=== PATIENT | female | born 2000 | race Caucasian/White ===

== ENCOUNTER 2023-08-05 08:14 | Outpatient (REF) | payer OTHER, SELFPAY ==
[2023-08-05 08:30] LABS: MANUAL DIFF FLAG NO
[2023-08-05 08:48] LABS: Basophils Percent Auto 0.7 % (0-2); Eosinophils Absolute Auto 0.1 X10*3/uL (0.0-0.4); Eosinophils Percent Auto 1.9 % (0-4); Hematocrit 41.4 % (37.0-47.0); Imm Gran Abs Auto 0.02 X10*3/uL (0.00-0.03); Imm Gran Pct Auto 0.3 % (0.0-0.4); Lymphocytes Absolute Auto 1.7 X10*3/uL (1.2-4.9); Lymphocytes Percent Auto 29.2 % (20-40); Mean Corpuscular HGB Conc 33.8 g/dl (31.0-35.0); Mean Corpuscular Hemoglobin 30.7 pg (27.0-33.0); Mean Corpuscular Volume 90.8 fL (80.0-98.0); Mean Platelet Volume 9.3 fL (9.4-12.3); Monocytes Absolute Auto 0.5 X10*3/uL (0.1-1.2); Monocytes Percent Auto 8.5 % (2-11); Neutrophils Absolute Auto 3.4 x10*3/uL (2.0-8.3); Neutrophils Percent Auto 59.4 % (45-73); Platelet Count 247 X10*3/uL (160-400); Red Blood Count 4.56 X10*6/uL (4.20-5.50); Red Cell Distribution Width 11.6 % (11.0-16.0); White Blood Count 5.8 X10*3/uL (4.8-10.8)
[2023-08-05 09:32] LABS: Estimated Average Glucose 82 mg/dL; Hemoglobin A1c % 4.5 % (<6.0)
[2023-08-05 09:39] LABS: Alanine Aminotransferase 14 U/L (0-31); Alkaline Phosphatase 62 U/L (39-117); Anion Gap 9 (12-20); Aspartate Amino Transferase 15 U/L (5-31); Bilirubin Total 0.3 mg/dL (0.0-1.0); Blood Urea Nitrogen 8 mg/dL (9-16); Calcium 9.1 mg/dL (8.4-10.2); Carbon Dioxide 28 mmol/L (22-29); Chloride 107 mmol/L (96-108); Estimated Glomerular Filt Rate > 60; Glucose Fasting 94 mg/dL (60-99); Sodium 140 mmol/L (135-145); Total Protein 6.9 g/dL (6.5-8.0)
[2023-08-05 09:57] LABS: Free T4 (Free Thyroxine) 0.92 ng/dL (0.71-1.85); Thyroid Stimulating Hormone 0.79 uIU/mL (0.32-4.0)
== END 2023-08-05 08:15 | disposition home or self-care (01) ==
LOC: HO.LAB 08:14
PROVIDERS: Visit Provider Psychiatry & Neurology Psychiatry
DX: F33.2 Major depressive disorder, recurrent severe without psychotic features (principal)
CPT/HCPCS: 36415; 80053; 83036; 84439; 84443; 85025

== ENCOUNTER → 2023-08-06 10:30 | Outpatient (BNV) | payer OTHER, SELFPAY | PROVIDERS: Visit Provider Psychiatry & Neurology Psychiatry | DX: F60.3 Borderline personality disorder (principal); F33.2 Major depressive disorder, recurrent severe without psychotic features; F43.12 Post-traumatic stress disorder, chronic; F17.290 Nicotine dependence, other tobacco product, uncomplicated | CPT/HCPCS: 90832; 90837; 99213 ==

== ENCOUNTER 2023-08-13 10:45 | Outpatient (RCR) | payer OTHER, SELFPAY ==
[2023-08-02 14:04] VITALS: BMI 24.6
--- NOTE | 2023-08-02 15:16 | PC.ADMIT ---
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 She reports d/t her mental health she has cut down her course load from 5 to three classes and is now taking classes online instead of in person. She self referred to [facility] d/t struggling with depression and severe anxiety with panic attacks along with feelings of intense anger and rage when she gets into arguments with her boyfriend. Having difficulty regulating her emotions. She reported on intake struggling with passive SI, no thoughts or plan to kill herself. Patient has a history of attending [facility] for three days however was sick with Covid and was subsequently discharged as a result of being unable to attend. Patient reports history of heavy alcohol intake while at college and at one point stated she was blacking out on some occasions when she would drink up to 10 drinks. She has since cut down her use and currently drinks one small bottle of wine and 2 Mixed drinksabout two nights a week. She stated she is done going out for a while. Denied using any other substances. Denied any alcohol withdrawal sxs. No tremors, no diaphoresis, no nausea or vomitting. VS 115/85 P 79. Patient is alert and oriented x4. Calm and cooperative. She presented with depressed mood and anxious affect. Denied any SI at present. I gave her a copy of her safety plan if needed. She is aware she an contact crisis if needed and stated prior to going to [facility] she spoke to crisis. Medications reconciled with patient and patient's pharmacy. Some medications changes when patient met with Dr Ferreira per patient including d/c hydroxyzine and decrease Abilify to 2 mg daily.
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
--- NOTE | 2023-08-05 16:28 | HO.PHP ---
Client case has been opened and reviewed in team.
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
--- NOTE | 2023-08-13 23:42 | P.PNPSP_ITS ---
Subjective Subjective Date of Service: 08/13/23 Reason For Visit: MDD,anxiety Interim History: Patient seen for follow-up, anticipating discharge at the end of program today.? Next, I found an [place] for support for when my dad is having problems She reports her mood is good, really good . She denies depressive symptoms, irritability or lability. I feel more steady . She found group therapy to be very helpful. She is open to DBT. She is still waiting to here back for a med provider appointment. She will try calling them today to check in. Reports no acute issues or concerns. Medication compliant, medications well- tolerated. Denies any adverse effects.? She is doing well on ABilify at 2 mg and WB SR 100 mg daily. She feels more focused and calmer. She has not been needing to take the quetiapine for agitation, but is happy to have it available to take in case she has any arguments or acute outbursts, but feels things are going well and feels more in control. Mood is stable.? Denies any hopelessness or SI. Denies thoughts of harming self or others at this time. Denies any aggressive ideation or HI. Denies any paranoia or AH or VH. Sleep, appetite, energy stable. Mental Status Exam Mental Status Exam Narrative: Alert, oriented, in no acute distress. Calm, cooperative. Mood stable, affect appropriate. Speech normal. Thought process linear, coherent, more goal- directed. Thought content related to stressors, future-oriented, denies any helplessness, hopelessness or SI.? No aggressive ideation or HI. No paranoia or delusional content elicited. No evidence of psychosis. Insight and judgment fair-good. Diagnostics Vital Signs (24Hr): BMI result Body Mass Index 24.6 Assessment & Plan Assessment & Plan (1) MDD (major depressive disorder), recurrent severe, without psychosis: Status: Acute Code(s): F33.2 - Major depressive disorder, recurrent severe without psychotic features Assessment and Plan: hx suggestive of DMDD as an adolescent r/o Bipolar disorder, unspecified (2) Complex posttraumatic stress disorder: Status: Acute Code(s): F43.10 - Post-traumatic stress disorder, unspecified (3) Emotionally unstable borderline personality disorder: Status: Acute Code(s): F60.3 - Borderline personality disorder Assessment and Plan: unstable personality development (4) Nicotine dependence due to vaping tobacco product: Status: Acute Code(s): F17.290 - Nicotine dependence, other tobacco product, uncomplicated Plan Discharge from [facility] continue current medication regime will defer further medication management to outpatient provider in the interim, patient encouraged to contact [facility] for refills if she does not get a provider until beyond current scripts Reviewed safety plan Refills sent to pharmacy Patient educated on: diagnosis, medication risk/benefits and substance abuse Informed Consent: understands Reason for contiued partial hosp. stay Substantial Risk for: stable for discharge Certification I certify that partial hospital treatment is medically necessary due to the symptoms and problems resulting from the patient's mental illness and the failure to treat the patient at the partial hospital level of care would likely result in the patient requiring inpatient psychiatric care which could not be prevented at a less intensive level of care. Total time managing care of this patient today __30__ minutes. Discharge Plan Discharge Attending provider: Kenisha Ferreira Medications: New quetiapine 25 mg tablet 12.5 - 25 mg PO BID PRN (Reason: agitation) Qty: 20 0RF nicotine (polacrilex) [Nicorette] 2 mg gum 2 mg buccal Q2H Qty: 50 0RF bupropion HCl 100 mg tablet sustained-release 12 hr 100 mg PO QAM Qty: 20 0RF Continued clonidine HCl 0.1 mg tablet 0.1 mg PO BEDTIME spironolactone 50 mg tablet 50 mg PO BID aripiprazole 2 mg tablet 2 mg PO BEDTIME 30 Days Qty: 30 0RF Stand Alone Forms: Patient Portal Discharge page Patient Education: Depression (DC) Print Language: Irish
== END 2023-08-13 23:59 | disposition home or self-care (01) ==
LOC: HO.PHPA 10:45
PROVIDERS: Visit Provider Psychiatry & Neurology Psychiatry
DX: F33.2 Major depressive disorder, recurrent severe without psychotic features (principal); F43.10 Post-traumatic stress disorder, unspecified; F41.1 Generalized anxiety disorder; Z79.899 Other long term (current) drug therapy
CPT/HCPCS: 90791; 90853